=== PATIENT | female | born 1940 | race Two or more races ===

== ENCOUNTER 2023-03-14 18:02 | Inpatient (IN) | payer OTHER, BC ==
[~2023-03-14] VITALS: Ht 165.1 cm; Wt 54.4 kg
[2023-03-14] MEDS ORDERED: WELLBUTRIN XL300 MG PO (18:29)
[2023-03-14 19:08] LABS: HEMATOCRIT 41.6 % (36.0-45.00); HEMOGLOBIN 13.9 g/dL (12.0-15.00); MEAN CELL VOLUME 92.8 fL (80.00-100.00); MEAN CORPUSCULAR HGB CONC 33.4 g/dl (32.0-36.0); PLATELET COUNT 279 K/uL (150-450); RED BLOOD COUNT 4.49 M/uL (4.00-6.00); RED CELL DISTRIBUTION WIDTH 16.1 % (11.5-14.5)
[2023-03-14 19:51] LABS: ALBUMIN 3.7 gm/dL (3.4-5.0); BILIRUBIN TOTAL 0.62 mg/dL (0.3-1.2); CALCIUM 10.4 mg/dL (8.5-10.1); CREATININE SERUM 0.92 mg/dL (0.55-1.02); GFR 58.44; GLOBULINA 3.2 G/DL (2.4-3.5); POTASSIUM 3.88 mEq/L (3.5-5.1); TOTAL PROTEIN 6.9 gm/dL (6.4-8.2)
[2023-03-14 19:55] LABS: C-REACTIVE PROTEIN 1.21 MG/DL (0.00-0.29)
[2023-03-14 21:42] LABS: PARTIAL THROMBOPLASTIN TIME 25.4 SECONDS (22.0-34.0); PROTHROMBIN TIME 10.5 SECONDS (9.0-11.5)
[2023-03-14 21:48] LABS: URINE APPEARANCE Clear; URINE BILIRRUBIN Negative (NEGATIVE); URINE BLOOD Small; URINE COLOR Yellow; URINE GLUCOSE Negative (NEGATIVE); URINE LEUKOCYTE Moderate; URINE NITRATE Negative; URINE PROTEIN 30 (NEGATIVE)
[2023-03-14 21:53] LABS: URINE BACTERIA 233.2 uL (0.0-1933); URINE RBC 41.2 uL (0.0-20.8); URINE WBC 192.8 uL (0.0-23.2)
[2023-03-16 07:49] LABS: URINE APPEARANCE Clear; URINE BILIRRUBIN Negative (NEGATIVE); URINE BLOOD Negative; URINE COLOR Yellow; URINE GLUCOSE Negative (NEGATIVE); URINE LEUKOCYTE Negative; URINE NITRATE Negative; URINE PROTEIN Negative (NEGATIVE)
[2023-03-16 07:52] LABS: URINE BACTERIA 9.6 uL (0.0-1933); URINE EPITHELIAL CELLS 3.5 uL (0.0-38.8); URINE RBC 12.7 uL (0.0-20.8); URINE WBC 5.6 uL (0.0-23.2)
[2023-03-17 08:04] LABS: HEMATOCRIT 35.4 % (36.0-45.00); MEAN CELL VOLUME 93.3 fL (80.00-100.00); MEAN CORPUSCULAR HEMOGLOBIN 31.5 pg (27.00-32.0); MEAN CORPUSCULAR HGB CONC 33.8 g/dl (32.0-36.0); PLATELET COUNT 260 K/uL (150-450); RED CELL DISTRIBUTION WIDTH 16.4 % (11.5-14.5)
[2023-03-17 08:14] LABS: ALBUMIN 2.8 gm/dL (3.4-5.0); BILIRUBIN TOTAL 0.45 mg/dL (0.3-1.2); CALCIUM 8.9 mg/dL (8.5-10.1); CREATININE SERUM 0.84 mg/dL (0.55-1.02); GFR 64.91; GLOBULINA 2.8 G/DL (2.4-3.5); PHOSPHOROUS 2.2 mg/dL (2.5-4.9); POTASSIUM 3.92 mEq/L (3.5-5.1); TOTAL PROTEIN 5.6 gm/dL (6.4-8.2)
[2023-03-17 08:34] LABS: C-REACTIVE PROTEIN 1.09 MG/DL (0.00-0.29)
[2023-03-21 06:54] LABS: HEMATOCRIT 36.7 % (36.0-45.00); HEMOGLOBIN 11.9 g/dL (12.0-15.00); MEAN CELL VOLUME 95.1 fL (80.00-100.00); MEAN CORPUSCULAR HEMOGLOBIN 30.8 pg (27.00-32.0); MEAN CORPUSCULAR HGB CONC 32.3 g/dl (32.0-36.0); PLATELET COUNT 287 K/uL (150-450); RED BLOOD COUNT 3.86 M/uL (4.00-6.00); RED CELL DISTRIBUTION WIDTH 16.1 % (11.5-14.5)
[2023-03-21 07:33] LABS: ALBUMIN 2.8 gm/dL (3.4-5.0); BILIRUBIN TOTAL 0.28 mg/dL (0.3-1.2); CALCIUM 9.6 mg/dL (8.5-10.1); CREATININE SERUM 0.71 mg/dL (0.55-1.02); GFR 78.81; GLOBULINA 2.9 G/DL (2.4-3.5); PHOSPHOROUS 2.8 mg/dL (2.5-4.9); POTASSIUM 3.72 mEq/L (3.5-5.1); TOTAL PROTEIN 5.7 gm/dL (6.4-8.2)
[2023-03-21 08:01] LABS: C-REACTIVE PROTEIN 2.17 MG/DL (0.00-0.29)
[2023-03-25 07:42] LABS: HEMATOCRIT 36.8 % (36.0-45.00); HEMOGLOBIN 12.3 g/dL (12.0-15.00); MEAN CELL VOLUME 93.3 fL (80.00-100.00); MEAN CORPUSCULAR HEMOGLOBIN 31.1 pg (27.00-32.0); MEAN CORPUSCULAR HGB CONC 33.3 g/dl (32.0-36.0); PLATELET COUNT 326 K/uL (150-450); RED BLOOD COUNT 3.94 M/uL (4.00-6.00); RED CELL DISTRIBUTION WIDTH 16.4 % (11.5-14.5)
[2023-03-25 08:17] LABS: ALKALINE PHOSPHATASE 83 U/L (50-136); ALT/SGPT 20 U/L (12-78); ANION GAP 8 (10.0-20.0); AST/SGOT 14 U/L (15-37); BILIRUBIN TOTAL 0.33 mg/dL (0.3-1.2); BLOOD UREA NITROGEN 19 mg/dL (7-18); BUN CREA RATIO 28 (7.0-25.0); CALCIUM 9.4 mg/dL (8.5-10.1); CARBON DIOXIDE 31 mEq/L (21-32); CHLORIDE 109 mmol/L (98-107); CREATININE SERUM 0.69 mg/dL (0.55-1.02); GFR 81.45; GLOBULINA 2.9 G/DL (2.4-3.5); GLUCOSE FASTING 86 mg/dL (65-100); OSMOLALITY SERUM 288 MOSM/KG (275-295); SODIUM 144 mmol/L (136-145); TOTAL PROTEIN 5.9 gm/dL (6.4-8.2)
[2023-03-25 08:19] LABS: C-REACTIVE PROTEIN < 0.29 MG/DL (0.00-0.29)
== END 2023-03-27 15:03 | disposition home or self-care (01) | DRG 982 ==
LOC: ER 18:02 → SEC-K 21:08 → MEDJ 03-15 16:27
PROVIDERS: General Practice; Internal Medicine; Internal Medicine Infectious Disease; ADMIT Internal Medicine; ATTEND Internal Medicine
PROC: 0JDP0ZZ Extraction of Left Lower Leg Subcutaneous Tissue and Fascia, Open Approach (ICD-10-PCS; principal; 2023-03-15)
PROC: B54DZZZ Ultrasonography of Bilateral Lower Extremity Veins (ICD-10-PCS; 2023-03-15)
PROC: 0JDP0ZZ Extraction of Left Lower Leg Subcutaneous Tissue and Fascia, Open Approach (ICD-10-PCS; 2023-03-26)
DX: I83.028 Varicose veins of left lower extremity with ulcer other part of lower leg (principal); L03.116 Cellulitis of left lower limb; L97.829 Non-pressure chronic ulcer of other part of left lower leg with unspecified severity; L08.9 Local infection of the skin and subcutaneous tissue, unspecified; I70.245 Atherosclerosis of native arteries of left leg with ulceration of other part of foot; B96.5 Pseudomonas (aeruginosa) (mallei) (pseudomallei) as the cause of diseases classified elsewhere; B95.2 Enterococcus as the cause of diseases classified elsewhere; B96.89 Other specified bacterial agents as the cause of diseases classified elsewhere; J44.9 Chronic obstructive pulmonary disease, unspecified